=== PATIENT | female | born 1985 ===

== ENCOUNTER 2025-09-15 07:12 | Inpatient (IN) | payer OTHER ==
[~2025-09-15] VITALS: Ht 167.6 cm; Wt 136.5 kg
[2025-09-15] MEDS ORDERED: MISOPROSTOL 25 MCG/4 ML GEL.W.APPL VAG ONE ×2 (08:30→13:15)
[2025-09-15] MEDS ORDERED: LABETALOL HCL100 MG PO (08:30)
[2025-09-15] MEDS ORDERED: PEPCID AC20 MG PO (08:30)
[2025-09-15] MEDS ORDERED: ECOTRIN81 MG PO (08:31)
[2025-09-15] MEDS ORDERED: SYNTHROID75 MCG PO (08:31)
[2025-09-15 08:32] VITALS: BP 128/76
[2025-09-15] MEDS ORDERED: PRENATAL + DHA1 EAC1 PO (08:32)
[2025-09-15 08:33] LABS: BASO % 0.5 % (0.1-1.2); EOS # 0.16 (0.04-0.54); EOS % 2.0 % (0.7-7.0); LYMPH # 2.09 (1.18-3.74); LYMPH % 25.6 % (19.3-53.1); MEAN PLATELET VOLUME 11.50 fl (9.4-12.4); MONO # 0.59 (0.24-0.82); MONO % 7.2 % (4.7-12.5); NEUT # 5.25 (1.56-6.13); NEUT % 64.5 % (34.0-71.1); RED CELL DISTRIBUTION WIDTH 15.2 % (11.6-14.4)
[2025-09-15 08:35] LABS: URINE APPEARANCE Clear; URINE BILIRRUBIN Negative (NEGATIVE); URINE COLOR Yellow; URINE GLUCOSE Negative (NEGATIVE); URINE KETONE 15 (NEGATIVE); URINE LEUKOCYTE Trace; URINE NITRATE Negative; URINE PROTEIN Trace (NEGATIVE); URINE UROBILINOGEN 0.2 E.U./dl
[2025-09-15 08:36] LABS: URINE BACTERIA 391.1 uL (0.0-1933); URINE EPITHELIAL CELLS 49.0 uL (0.0-38.8); URINE RBC 47.3 uL (0.0-20.8); URINE WBC 7.8 uL (0.0-23.2)
[2025-09-15 08:38] LABS: URINE BLOOD TRACE; URINE CAST 0.00 uL (0.0-1.40)
[2025-09-15 08:58] LABS: INR 0.96
[2025-09-15 12:34] VITALS: BP 142/73
[2025-09-15 15:44] VITALS: BP 153/69
[2025-09-15 19:43] VITALS: BP 130/74
[2025-09-15] MEDS ORDERED: ERYTHROMYCIN BASE OPHT 1GM EACH TUBE OP ONE ×2 (21:50→23:30)
[2025-09-15] MEDS ORDERED: OXYTOCIN 10 UNITS/ML VIAL ONE (21:50)
[2025-09-15] MEDS ORDERED: CEFAZOLIN SODIUM 1,000 MG VIAL ONE (21:50)
[2025-09-15] MEDS ORDERED: CEFAZOLIN SODIUM 1,000 MG VIAL IV ONE (23:30)
[2025-09-15] MEDS ORDERED: OXYTOCIN 10 UNITS/ML VIAL IV ONE (23:30)
[2025-09-16] MEDS ORDERED: MORPHINE SULFATE 4 MG/ML CARTRIDGE IV SCH (01:00)
[2025-09-16 03:41] VITALS: BP 121/71
[2025-09-16] MEDS ORDERED: KETOROLAC TROMETHAMINE 60 MG VIAL IM ONE (04:00)
[2025-09-16] MEDS ORDERED: OxyCODONE HCL 5 MG TABLET (ROXICODONE) PO SCH (05:00)
[2025-09-16 06:49] LABS: BASO % 0.3 % (0.1-1.2); EOS # 0.06 (0.04-0.54); EOS % 0.5 % (0.7-7.0); LYMPH # 1.93 (1.18-3.74); LYMPH % 16.2 % (19.3-53.1); MEAN PLATELET VOLUME 11.50 fl (9.4-12.4); MONO # 0.89 (0.24-0.82); MONO % 7.5 % (4.7-12.5); NEUT # 9.00 (1.56-6.13); NEUT % 75.2 % (34.0-71.1); RED CELL DISTRIBUTION WIDTH 15.2 % (11.6-14.4)
[2025-09-16] MEDS ORDERED: SIMETHICONE 125 MG CAPSULE PO SCH (08:00)
[2025-09-16] MEDS ORDERED: DOCUSATE SODIUM 100MG CAP PO SCH (08:00)
[2025-09-16 08:14] VITALS: BP 150/80
[2025-09-16] MEDS ORDERED: FF) RHO(D) IMMUNE GLOBULIN (POM) IM NR (08:45)
[2025-09-16] MEDS ORDERED: LABETALOL HCL 100 MG TABLET PO SCH (09:00)
[2025-09-16] MEDS ORDERED: PNV,CALCIUM 72/IRON/FOLIC ACID 1 TAB TABLET PO SCH (09:00)
[2025-09-16 14:00] VITALS: BP 134/86
[2025-09-16 16:00] VITALS: BP 134/80
[2025-09-17 02:57] VITALS: BP 119/66
[2025-09-17] MEDS ORDERED: LEVOTHYROXINE SODIUM 75 MCG TABLET PO SCH (06:00)
[2025-09-17 08:00] VITALS: BP 115/78
== END 2025-09-17 13:48 | disposition home or self-care (01) | DRG 788 ==
LOC: LDR 07:12 → OB/GYN 23:15
PROVIDERS: ADMIT Obstetrics & Gynecology; ATTEND Obstetrics & Gynecology
PROC: 4A1HXCZ Monitoring of Products of Conception, Cardiac Rate, External Approach (ICD-10-PCS; 2025-09-15)
PROC: 10D00Z1 Extraction of Products of Conception, Low, Open Approach (ICD-10-PCS; principal; 2025-09-15 23:00)
DX: O33.8 Maternal care for disproportion of other origin (principal); Z3A.38 38 weeks gestation of pregnancy; Z37.0 Single live birth